=== PATIENT | male | born 1965 | race Caucasian/White ===

== ENCOUNTER 2017-09-05 15:08 | Emergency (ER) | payer BC ==
[2017-09-05] MEDS ORDERED: Sodium Chloride 0.9% 10 ML Syringe FLUSH PRN (15:14)
[2017-09-05] MEDS ORDERED: cefTRIAXone 1 GM Vial IVPUSH ONE (15:15)
[2017-09-05] MEDS ORDERED: Acetaminophen 325 MG Tab PO ONE (15:21)
[2017-09-05] MEDS ORDERED: Sodium Chloride 0.9% 1,000 ML IV SCH (15:30)
--- NOTE | 2017-09-05 15:30 | EDM.PDOC ---
ED HPI GENERAL MEDICAL PROBLEM - General Time Seen by Provider: 09/05/17 15:10 Source of Information: Reports: Patient - History of Present Illness INITIAL COMMENTS - FREE TEXT/NARRATIVE: Pt comes into the emergency department with complaint of fatigue, fever of 103, tachycardia, it suddenly started at around 3 hours prior to arrival (12:30pm). Recently had a meniscal repair approximately 2 weeks ago. Physical therapy started today. Shortly after physical therapy he began he started to have the above symptoms. Patient states that he has had urinary issues in the past prior to surgery-protein in the urine however it was linked to drinking protein shakes to help with weight loss. He denies having any issues with ambulating and walking on his left leg that was operated on. Today he noticed increased warmth and tenderness on that leg along with some swelling. Patient denies being around anyone ill recently denies any chest pain shortness of breath. He that he has right lower back/flank pain has been on and off since 12:30 as well. Onset: Sudden Quality: Reports: Throbbing Severity: Moderate Improves with: Reports: Immobilization Worsens with: Reports: Movement ED ROS GENERAL - Review of Systems Review Of Systems: See Below Constitutional: Reports: Fever, Chills, Malaise, Fatigue, Decreased Appetite. Denies: Night Sweats, Diaphoresis, Weight Loss HEENT: Reports: No Symptoms Respiratory: Reports: No Symptoms Cardiovascular: Reports: No Symptoms Endocrine: Reports: No Symptoms GI/Abdominal: Reports: Abdominal Pain : Reports: Flank Pain Musculoskeletal: Reports: No Symptoms Skin: Reports: No Symptoms Neurological: Reports: No Symptoms Psychiatric: Reports: No Symptoms Hematologic/Lymphatic: Reports: No Symptoms Immunologic: Reports: No Symptoms ED EXAM, GENERAL - Physical Exam Exam: See Below Exam Limited By: No Limitations General Appearance: Alert, WD/WN, No Apparent Distress Head: Atraumatic, Normocephalic Neck: Normal Inspection, Supple, Non-Tender, Full Range of Motion Respiratory/Chest: No Respiratory Distress, Lungs Clear, Normal Breath Sounds, No Accessory Muscle Use, Chest Non-Tender Cardiovascular: Normal Peripheral Pulses, Tachycardia GI/Abdominal: Normal Bowel Sounds, Non-Tender, No Abnormal Bruit, No Mass, Pelvis Stable, Distended, Tender Extremities: Normal Inspection, Pedal Edema, Leg Pain (left leg ), Increased Warmth (left leg ), Redness (left knee). No: Joint Swelling Neurological: Alert, Oriented, Normal Gait Psychiatric: Normal Affect, Normal Mood Skin Exam: Warm, Dry, Intact, Normal Color, No Rash Lymphatic: No Adenopathy EKG INTERPRETATION Rhythm: NSR [place]: Normal P-Wave: Present QRS: Normal ST-T: Normal QT: Normal Course - Vital Signs Last Recorded V/S: Last Vital Signs Temp 39.8 C H 09/05/17 15:33 Pulse Resp BP Pulse Ox - Orders/Labs/Meds Orders: Active Orders 24 hr Category Date Time Status EKG Documentation Completion [RC] STAT Care 09/05/17 15:15 Active Abdomen Pelvis w Cont [CT] Stat Exams 09/05/17 15:22 Ordered CULTURE BLOOD [BC] Stat Lab 09/05/17 15:27 Received CULTURE BLOOD [BC] Stat Lab 09/05/17 15:34 Received UA W/MICROSCOPIC [URIN] Stat Lab 09/05/17 15:15 Ordered Piperacillin/Tazobactam [Zosyn] 3.375 gm Med 09/05/17 16:33 Ordered Sodium Chloride 0.9% [Normal Saline] 100 ml IV ONETIME Sodium Chloride 0.9% [Normal Saline] 1,000 ml Med 09/05/17 15:30 Active IV ASDIRECTED Sodium Chloride 0.9% [Saline Flush] Med 09/05/17 15:14 Active 10 ml FLUSH ASDIRECTED PRN Blood Culture x2 Reflex Set [OM.PC] Stat Oth 09/05/17 15:14 Ordered Peripheral IV Insertion Adult [OM.PC] Stat Oth 09/05/17 15:14 Ordered Medication Orders Sodium Chloride (Normal Saline) 1,000 mls @ 500 mls/hr IV ASDIRECTED [facility] Last Admin: 09/05/17 15:33 Dose: 500 mls/hr Piperacillin Sod/Tazobactam (Sod 3.375 gm/ Sodium Chloride) 100 mls @ 200 mls/ hr IV ONETIME ONE Stop: 09/05/17 17:02 Last Admin: 09/05/17 16:45 Dose: 200 mls/hr Sodium Chloride (Saline Flush) 10 ml FLUSH ASDIRECTED PRN PRN Reason: Keep Vein Open Labs: Laboratory Tests 09/05/17 09/05/17 09/05/17 Range/Units 15:15 15:27 15:27 WBC 16.0 H (4.0-10.0) x10^3/uL RBC 4.60 (4.5-6.0) x10^6/uL Hgb 13.8 L (14.0-18.0) g/dL Hct 40.9 (40.0-52.0) % MCV 88.9 (78.0-93.0) fL MCH 30.0 (26.0-32.0) pg MCHC 33.7 (32.0-36.0) g/dL RDW Coeff of Carrie 13.5 (10.0-15.0) % Plt Count 188 (130-400) x10^3/uL Add Manual Diff Yes Neutrophils % (Manual) 75 (50-80) % Band Neutrophils % 14 H (0-6) % Lymphocytes % (Manual) 3 L (25-50) % Monocytes % (Manual) 4 (2-11) % Eosinophils % (Manual) 1 (0-4) % Metamyelocytes % 3 H (0) % Vacuolated Monocytes 1+ slight H Toxic Granulation 2+ moderate H Platelet Estimate Adequate Polychromasia 1+ slight H PT (9.6-11.4) SEC INR (2.0-3.5) Sodium 141 (136-145) mmol/L Potassium 4.0 (3.5-5.1) mmol/L Chloride 105 (98-107) mmol/L Carbon Dioxide 27 (21-32) mmol/L Anion Gap 13.0 (10-20) mmol/L BUN 14 (7-18) mg/dL Creatinine 1.1 (0.70-1.30) mg/dL Est Cr Clr Drug Dosing TNP Estimated GFR (MDRD) > 60 Glucose 114 H (74-106) mg/dL Lactic Acid (0.4-2.0) mmol/L Calcium 9.2 (8.5-10.1) mg/dL Corrected Calcium 9.28 (8.5-10.1) mg/dL Total Bilirubin 0.5 (0.2-1.0) mg/dL AST 20 (15-37) U/L ALT 41 (16-63) U/L Alkaline Phosphatase 83 (46-116) U/L Total Protein 7.4 (6.4-8.2) g/dL Albumin 3.9 (3.4-5.0) g/dL Globulin 3.5 Albumin/Globulin Ratio 1.11 Urine Color Yellow (YELLOW) Urine Appearance Clear (CLEAR) Urine pH 8.5 H (5.0-8.0) Ur Specific Hessel 1.020 Urine Protein Negative (NEGATIVE) mg/dL Urine Glucose (UA) Negative (NEGATIVE) mg/dL Urine Ketones Negative (NEGATIVE) mg/dL Urine Occult Blood Negative (NEGATIVE) Urine Nitrite Negative (NEGATIVE) Urine Bilirubin Negative (NEGATIVE) Urine Urobilinogen 0.2 (0.2) EU/dL Ur Leukocyte Esterase Negative (NEGATIVE) Urine RBC 0-5 (NOT SEEN) /HPF Urine WBC 0-5 (NOT SEEN) /HPF Ur Squamous Epith Cells Not seen (NEGATIVE) /HPF Amorphous Sediment Rare Urine Bacteria Not seen (NEGATIVE) /HPF Urine Mucus Rare H (NEGATIVE) /LPF 09/05/17 09/05/17 Range/Units 15:27 15:27 WBC (4.0-10.0) x10^3/uL RBC (4.5-6.0) x10^6/uL Hgb (14.0-18.0) g/dL Hct (40.0-52.0) % MCV (78.0-93.0) fL MCH (26.0-32.0) pg MCHC (32.0-36.0) g/dL RDW Coeff of Carrie (10.0-15.0) % Plt Count (130-400) x10^3/uL Add Manual Diff Neutrophils % (Manual) (50-80) % Band Neutrophils % (0-6) % Lymphocytes % (Manual) (25-50) % Monocytes % (Manual) (2-11) % Eosinophils % (Manual) (0-4) % Metamyelocytes % (0) % Vacuolated Monocytes Toxic Granulation Platelet Estimate Polychromasia PT 9.9 (9.6-11.4) SEC INR 0.9 L (2.0-3.5) Sodium (136-145) mmol/L Potassium (3.5-5.1) mmol/L Chloride (98-107) mmol/L Carbon Dioxide (21-32) mmol/L Anion Gap (10-20) mmol/L BUN (7-18) mg/dL Creatinine (0.70-1.30) mg/dL Est Cr Clr Drug Dosing Estimated GFR (MDRD) Glucose (74-106) mg/dL Lactic Acid 1.8 (0.4-2.0) mmol/L Calcium (8.5-10.1) mg/dL Corrected Calcium (8.5-10.1) mg/dL Total Bilirubin (0.2-1.0) mg/dL AST (15-37) U/L ALT (16-63) U/L Alkaline Phosphatase (46-116) U/L Total Protein (6.4-8.2) g/dL Albumin (3.4-5.0) g/dL Globulin Albumin/Globulin Ratio Urine Color (YELLOW) Urine Appearance (CLEAR) Urine pH (5.0-8.0) Ur Specific [place] Urine Protein (NEGATIVE) mg/dL Urine Glucose (UA) (NEGATIVE) mg/dL Urine Ketones (NEGATIVE) mg/dL Urine Occult Blood (NEGATIVE) Urine Nitrite (NEGATIVE) Urine Bilirubin (NEGATIVE) Urine Urobilinogen (0.2) EU/dL Ur Leukocyte Esterase (NEGATIVE) Urine RBC (NOT SEEN) /HPF Urine WBC (NOT SEEN) /HPF Ur Squamous Epith Cells (NEGATIVE) /HPF Amorphous Sediment Urine Bacteria (NEGATIVE) /HPF Urine Mucus (NEGATIVE) /LPF Meds: Medications Generic Name Dose Route Start Last Admin Trade Name Freq PRN Reason Stop Dose Admin Sodium Chloride 1,000 mls @ 500 mls/hr 09/05/17 15:30 09/05/17 15:33 Normal Saline IV 500 mls/hr ASDIRECTED JESS Administration Piperacillin Sod/Tazobactam 100 mls @ 200 mls/hr 09/05/17 16:33 09/05/17 16: 45 Sod 3.375 gm/ Sodium Chloride IV 09/05/17 17:02 200 mls/hr ONETIME ONE Administration Sodium Chloride 10 ml 09/05/17 15:14 Saline Flush FLUSH ASDIRECTED PRN Keep Vein Open Discontinued Medications Generic Name Dose Route Start Last Admin Trade Name Freq PRN Reason Stop Dose Admin Acetaminophen 650 mg 09/05/17 15:21 09/05/17 15:33 Tylenol PO 09/05/17 15:22 650 mg NOW ONE Administration Ceftriaxone Sodium 1 gm 09/05/17 15:15 09/05/17 15:34 Rocephin IVPUSH 09/05/17 15:16 1 gm ONETIME ONE Administration - Radiology Interpretation CT Results Date: 09/05/17 (Fat containing periumbilical hernia with a small amount of reactive change in the herniated fat. Correlated for site of pain. ) Departure - Departure Time of Disposition: 16:55 Disposition: DC/Tfer to Acute Hospital 02 Condition: Good Clinical Impression: Sepsis Qualifiers: Sepsis type: sepsis due to unspecified organism Qualified Code(s): A41.9 - Sepsis, unspecified organism Post op infection Qualifiers: Encounter type: initial encounter Qualified Code(s): T81.4XXA - Infection following a procedure, initial encounter - Discharge Information Referrals: Brice Morrissey MD [Primary Care Provider] - Forms: Interfacility Transfer EMTALA - My Orders Last 24 Hours: My Active Orders 09/05/17 15:14 Sodium Chloride 0.9% [Saline Flush] 10 ml FLUSH ASDIRECTED PRN Blood Culture x2 Reflex Set [OM.PC] Stat Peripheral IV Insertion Adult [OM.PC] Stat 09/05/17 15:15 EKG Documentation Completion [RC] STAT UA W/MICROSCOPIC [URIN] Stat 09/05/17 15:22 Abdomen Pelvis w Cont [CT] Stat 09/05/17 15:27 CULTURE BLOOD [BC] Stat 09/05/17 15:30 Sodium Chloride 0.9% [Normal Saline] 1,000 ml IV ASDIRECTED 09/05/17 15:34 CULTURE BLOOD [BC] Stat 09/05/17 16:33 Piperacillin/Tazobactam [Zosyn] 3.375 gm Sodium Chloride 0.9% [Normal Saline] 100 ml IV ONETIME - Assessment/Plan Last 24 Hours: My Active Orders 09/05/17 15:14 Sodium Chloride 0.9% [Saline Flush] 10 ml FLUSH ASDIRECTED PRN Blood Culture x2 Reflex Set [OM.PC] Stat Peripheral IV Insertion Adult [OM.PC] Stat 09/05/17 15:15 EKG Documentation Completion [RC] STAT UA W/MICROSCOPIC [URIN] Stat 09/05/17 15:22 Abdomen Pelvis w Cont [CT] Stat 09/05/17 15:27 CULTURE BLOOD [BC] Stat 09/05/17 15:30 Sodium Chloride 0.9% [Normal Saline] 1,000 ml IV ASDIRECTED 07/06/18 15:34 CULTURE BLOOD [BC] Stat 09/05/17 16:33 Piperacillin/Tazobactam [Zosyn] 3.375 gm Sodium Chloride 0.9% [Normal Saline] 100 ml IV ONETIME Assessment:: 1. fever, chills, redness, warmth 2. post-op miniscal repair 2 weeks 3. Right flank pain Plan: 1. Labs completed results reviewed with the patient 2. EKG completed results reviewed with the patient 3. IV and normal saline given to the pt 4. Rocephin 1gm given upon arrival for pt meets criteria of sepsis 5. CT completed for right flank pain results reviewed with the patient 6-21 CR 1.12 GFR >60 6. Consult made [address] Macias. He is agreeable to the transfer and will assume care 7. PO ibuprofen 600mg given for headache. Pt would not like something stronger at this point.
[2017-09-05 15:58] LABS: CHLORIDE,CL 105 mmol/L (98-107); SODIUM,NA 141 mmol/L (136-145)
[2017-09-05] MEDS ORDERED: Piperacillin/Tazobactam 3.375 GM in Sodium Chloride 0.9% 100 ML IV ONE (16:33)
[2017-09-05] MEDS ORDERED: Ibuprofen 200 MG Tab PO STA (16:52)
== END 2017-09-05 17:35 | disposition short-term general hospital (02) ==
LOC: VM.ED 15:08
DX: A41.9 Sepsis, unspecified organism (principal); T81.4XXA Infection following a procedure, initial encounter; Z98.890 Other specified postprocedural states
CPT/HCPCS: 36415; 74177; 80053; 81001; 83605; 85025; 85610; 87040; 93005; 96361; 96365; 96375; 99285; A9270-GY; J0696; J2543; J7030; J7050